=== PATIENT | female | born 1955 | race Two or more races ===

== ENCOUNTER 2021-01-07 14:50 | Emergency (ER) | payer MEDICARE ==
[~2021-01-07] VITALS: Ht 167.6 cm; Wt 58.5 kg
--- NOTE | 2021-01-07 15:10 | NUR ---
PT STATES DIFFICULTY SWALLOWING, "LYMPH NODE SWELLING" IN NECK, NASAL INFLAMMATION "ON AND OFF" FOR THREE YEARS SINCE CVA. 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 PT RESTING IN BED. NADN. MCKINNEY.
[2021-01-07 15:50] VITALS: BP 168/79
== END 2021-01-07 15:53 | disposition home or self-care (01) ==
LOC: ED 15:00
DX: J30.9 Allergic rhinitis, unspecified (principal); G89.29 Other chronic pain; R94.31 Abnormal electrocardiogram [ECG] [EKG]; I48.91 Unspecified atrial fibrillation; Z86.14 Personal history of Methicillin resistant Staphylococcus aureus infection; Z86.73 Personal history of transient ischemic attack (TIA), and cerebral infarction without residual deficits
CPT/HCPCS: 93005; 99283